=== PATIENT | male | born 2000 | race Caucasian/White ===

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

== ENCOUNTER 2021-11-17 10:17 | Emergency (ER) | payer OTHER ==
[~2021-11-17] VITALS: Ht 193 cm; Wt 104.3 kg
[~2021-11-17 10:17] MED LIST: BACTRIM DS TAB1 EAC1 PO; KEFLEX500 M1 PO
[2021-11-17 12:58] VITALS: BP 140/78
== END 2021-11-17 12:58 | disposition home or self-care (01) ==
LOC: M.ERS 10:17
DX: S40.012A Contusion of left shoulder, initial encounter (principal); W22.8XXA Striking against or struck by other objects, initial encounter; Y93.89 Activity, other specified; Y92.89 Other specified places as the place of occurrence of the external cause; Y99.8 Other external cause status